=== PATIENT | male | born 1980 | race Caucasian/White ===

== ENCOUNTER 2018-02-06 14:31 | Emergency (ER) | payer OTHER ==
[2018-02-06] MEDS ORDERED: Bacitracin Zinc 1 Packet ONE (14:52)
--- NOTE | 2018-02-06 15:28 | RAD ---
RIGHT HAND 3 VIEWS: HISTORY: Fracture. Hand injury. FINDINGS: Oblique fracture through the 5th metacarpal neck with comminution and posterior angulation. Fracture is through the callus formation from the previous injury. No evidence of intraarticular extension. Ulnar positive variant is noted. IMPRESSION: Repeat boxer's fracture of the right 5th metacarpal. POS: [facility]
== END 2018-02-06 15:23 | disposition home or self-care (01) ==
LOC: ERS 14:31
DX: S50.811A Abrasion of right forearm, initial encounter (principal); S60.511A Abrasion of right hand, initial encounter; F31.9 Bipolar disorder, unspecified; F41.9 Anxiety disorder, unspecified; F17.290 Nicotine dependence, other tobacco product, uncomplicated; R45.851 Suicidal ideations; W22.8XXA Striking against or struck by other objects, initial encounter

== ENCOUNTER 2018-06-11 00:16 | Emergency (ER) | payer SELFPAY | END 2018-06-11 02:05 | LOC: ERS 00:16 | DX: R45.851 Suicidal ideations (principal); F41.9 Anxiety disorder, unspecified; F31.9 Bipolar disorder, unspecified; F20.9 Schizophrenia, unspecified; F17.210 Nicotine dependence, cigarettes, uncomplicated; Z79.899 Other long term (current) drug therapy | CPT/HCPCS: 99284 ==